=== PATIENT | male | born 1960 | race African-American/Black ===

== ENCOUNTER 2016-10-16 10:25 | Inpatient (IN) | payer OTHER ==
[2016-10-16 10:45] VITALS: BMI 25.1
[2016-10-16] MEDS ORDERED: ONDANSETRON 4 MG/2 ML VIAL IVPUSH ONE (11:27)
[2016-10-16] MEDS ORDERED: FAMOTIDINE 20 MG/50 ML IVPB 50 ML IVPB ONE ×2 (11:27→12:39)
--- NOTE | 2016-10-16 11:27 | PDOC ---
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 He reports about 4 episodes of vomiting, nonbloody, since the onset of symptoms. He localizes his intermittent abdominal pain to the epigastric region without radiation of pain. He also states he has had a couple episodes of loose stools, nonbloody. He reports several recent experiences with these symptoms since in August, but he denies any admissions for these symptoms. The patient states he was unable to tolerate his potassium today. He denies any recent travels or antibiotic use. He denies any sick contacts. He denies chest pain, shortness of breath, headache and dizziness. He denies fever, chills, and constipation. He denies dysuria, frequency, urgency and hematuria. Allergies: NKDA Surgical History: Double spinal fusion (vicodin) The patient presents with his significant other, Jeovanny hernandez [phone] <Kisha Christian - Last Filed: 10/16/16 19:04> <Libby Chamberlain - Last Filed: 10/16/16 19:20> - General Chief Complaint: Pain Stated Complaint: ABD PAIN,WEAK,DIZZY Time Seen by Provider: 10/16/16 11:06 Past History <Kisha Christian - Last Filed: 10/16/16 19:04> - Past Medical History Disorders: (ENLARGED PROSTATE) HTN: Yes Other medical history: DISC DISEASE, GITELMAN DISEASE - Psycho/Social/Smoking Cessation Hx Suicidal Ideation: No Smoking History: Never smoked Information on smoking cessation initiated: No <Libby Chamberlain - Last Filed: 10/16/16 19:20> - Past Medical History Allergies/Adverse Reactions: Allergies Allergy/AdvReac Type Severity Reaction Status Date / Time gabapentin [From Neurontin] Allergy Verified 10/16/16 10:41 Review of Systems - Review of Systems Able to Perform ROS?: Yes Comments:: 10/16/16 11:28 GENERAL/CONSTITUTIONAL: No fever or chills. No weakness. HEAD, EYES, EARS, NOSE AND THROAT: No change in vision. No ear pain or discharge. No sore throat. CARDIOVASCULAR: No chest pain or shortness of breath. RESPIRATORY: No cough, wheezing, or hemoptysis. GASTROINTESTINAL: (+) abdominal pain, nausea, vomiting, diarrhea. No constipation. GENITOURINARY: No dysuria, frequency, or change in urination. MUSCULOSKELETAL: No joint or muscle swelling or pain. No neck or back pain. SKIN: No rash NEUROLOGIC: No headache, vertigo, loss of consciousness, or change in strength/ sensation. ENDOCRINE: No increased thirst. No abnormal weight change. HEMATOLOGIC/LYMPHATIC: No anemia, easy bleeding, or history of blood clots. ALLERGIC/IMMUNOLOGIC: No hives or skin allergy. <Kisha Christian - Last Filed: 10/16/16 19:04> *Physical Exam - Vital Signs Last Vital Signs Temp Pulse Resp BP Pulse Ox 98.1 F 97 H 18 143/95 100 10/16/16 10:30 10/16/16 10:30 10/16/16 10:30 10/16/16 10:30 10/16/16 10:30 - Physical Exam Comments: 10/16/16 11:29 GENERAL: Awake, alert, and fully oriented, in no acute distress HEAD: No signs of trauma EYES: PERRLA, EOMI, sclera anicteric, conjunctiva clear ENT: (+) dry mucosa. Auricles normal inspection, hearing grossly normal, nares patent, oropharynx clear without exudates. NECK: Normal ROM, supple, no lymphadenopathy, JVD, or masses LUNGS: Breath sounds equal, clear to auscultation bilaterally. No wheezes, and no crackles HEART: Regular rate and rhythm, normal S1 and S2, no murmurs, rubs or gallops ABDOMEN: (+) mild epigastric tenderness to palpation. no rebound. no guarding. Soft, normoactive bowel sounds. No masses EXTREMITIES: Normal range of motion, no edema. No clubbing or cyanosis. No cords, erythema, or tenderness NEUROLOGICAL: Normal speech, normal gait SKIN: Warm, Dry, normal turgor, no rashes or lesions noted. <Kihsa Christian - Last Filed: 10/16/16 19:04> - Vital Signs Last Vital Signs Temp Pulse Resp BP Pulse Ox 98.1 F 97 H 18 143/95 100 10/16/16 10:30 10/16/16 10:30 10/16/16 10:30 10/16/16 10:30 10/16/16 10:30 <Libby Chamberlain - Last Filed: 10/16/16 19:20> Heart Score/ECG Review #1 ECG reviewed & interpreted by me at: 13:08 General ECG Interpretation: Sinus Rhythm, Normal Rate (occasional PVc's), Normal Intervals (occasional PVC) <Libby Chamberlain - Last Filed: 10/16/16 19:20> ED Treatment Course - LABORATORY CBC & Chemistry Diagram: 10/16/16 12:45 10/16/16 12:45 <Kisha hCristian - Last Filed: 10/16/16 19:04> - LABORATORY CBC & Chemistry Diagram: 10/16/16 12:45 10/16/16 12:45 <Libby Chamberlain - Last Filed: 10/16/16 19:20> Medical Decision Making - Medical Decision Making 10/16/16 11:21 56 yo M with h/o Gittelmans syndrome requiring daily potassium supplement take 60 meq twice daily, . here with n/v/d since yesterday. has had several recurrent episode over last month, none requiring admission. has not seen GI since 10 years ago. pt is on chronic vicodin 10 mg for h/o spinal fusion back pain, states is running low, but has not run out. no f/c no recent antiobiotcs no recent traveling. no mod factors. has thrown up 30 times since yesterday. c/ o epigastric burning pain. no mod factors. all nonbloody nonbilious. on exam, dry mucous membranes, mild epigastric ttp, otherwise normal exam differential: pancreatitis, gastritis, opiate withdrawal, hypokalemia, dehydration, renal failure, other electrolyte plan ivfluids, antacid, antemetics. 10/16/16 15:01 <Libby Chamberlain - Last Filed: 10/16/16 19:20> *DC/Admit/Observation/Transfer - Transfer to Acute Care Facility Transfer comment: 10/16/16 11:30 Documentation prepared by Kisha Christian, acting as medical coding auditor for Libby Chamberlain MD, <Kisha Christian - Last Filed: 10/16/16 19:04> - Discharge Dispostion Admit: Yes <Libby Chamberlain - Last Filed: 10/16/16 19:20> Diagnosis at time of Disposition: Gastroenteritis, Hypokalemia
[2016-10-16] MEDS ORDERED: SODIUM CHLORIDE 1,000 ML IV STA ×2 (11:29→15:00)
[2016-10-16] MEDS ORDERED: ONDANSETRON 4 MG/2 ML VIAL ONE (12:39)
[2016-10-16 12:58] LABS: BASOPHIL 0.7 % (0-2.0); EOSINOPHIL 2.3 % (0-4.5); MCH 28.8 pg (25.7-33.7); MCHC 33.7 g/dl (32.0-35.9); MEAN CELL VOLUME 85.3 fl (80-96); MEAN PLT VOLUME 7.2 fl (7.5-11.1); NEUTROPHILS 72.3 % (42.8-82.8); PLATELET COUNT 406 K/MM3 (134-434); WHITE BLOOD COUNT 9.6 K/mm3 (4.0-10.0)
[2016-10-16] MEDS ORDERED: POTASSIUM CHLORIDE TABS 20 MEQ TABLET.ER (FP) PO ONE ×2 (13:17→15:03)
[2016-10-16] MEDS ORDERED: POTASSIUM CHLORIDE 20 MEQ PREMIX IVPB 100 ML IVPB ONE (13:17)
[2016-10-16 13:35] LABS: ALBUMIN 3.6 g/dl (3.4-5.0); ANION GAP 13 (8-16); BILIRUBIN,TOTAL 0.6 mg/dL (0.2-1.0); CO2 27 mmol/L (21-32); COCKROFT - GAULT 95.25; GLUCOSE,RANDOM 114 mg/dL (74-106); SGOT/AST 17 U/L (15-37); SGPT/ALT 26 U/L (12-78); TOT PROT 7.3 g/dl (6.4-8.2)
[2016-10-16 13:39] LABS: ALK PHOS 72 U/L (45-117); TROPONIN I < 0.02 ng/ml (0.00-0.05)
[2016-10-16] MEDS ORDERED: KCL 10 MEQ IVPB 200 ML IVPB ONE (15:03)
--- NOTE | 2016-10-16 19:09 | HP ---
CHIEF COMPLAINT: "mert been vomiting" PCP: Dr Chastity Gustafson HISTORY OF PRESENT ILLNESS: This is a 56 yo M with 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 Patient states he has had 3 similar episodes this spring, self limiting over 4 days, for which he was not hospitalized. There are no sick contacts, no specific initiating factors, no alleviating or aggravating factors. He has had 4 ep of NBNB vomiting and >30 ep of nonbloody, nonmelenous diarrhea. He has not been able to tolerate PO today and has not taken his K supplements or HTN meds. His abd pain is mostly diffuse, dull, constant, nonradiating and aggravated by BM. He deneis weight loss, rectal pain, f/c, chest pain, palpitations or sob but complains of thirst, dry mouth and h/a. He denies muscle cramps but complains of chronic joint pains and chronic polyuria. He had a colonoscopy 20 yrs ago due to his chronic abd complaints, that seemed to be normal, was not told of UC or crohns. He has tried lactose free and gluten free diet with no alleviation of symptoms. He has no recreational specialist or GI. ER course was notable for: (1)labs (hypokalemia 3.1), mag added on later (2)ekg (wnl) (3)IVF, K iv 20, po 40m, zofran Recent Travel: r[place], Has a trip scheduled for Fri. PAST MEDICAL HISTORY: as above PAST SURGICAL HISTORY: as above Social History: lives with partner Smokin cigs/day x 10 yrs Alcohol: one drink/week Drugs: denies Family History: Mother gastric CA, degenerative disc disease Allergies gabapentin [From Neurontin] Allergy (Verified 10/16/16 10:41)-n/v HOME MEDICATIONS: REVIEW OF SYSTEMS CONSTITUTIONAL: Absent: fever, chills, diaphoresis, weight change HEENT: Absent: rhinorrhea, nasal congestion, throat pain CARDIOVASCULAR: Absent: chest pain, syncope, palpitations, irregular heart rate, lightheadedness , peripheral edema RESPIRATORY: Absent: cough, shortness of breath, dyspnea with exertion, orthopnea, wheezing, stridor, hemoptysis GASTROINTESTINAL: Absent: constipation, melena, hematochezia +n/v, diarrhea, abd pain GENITOURINARY: +dysuria (chronic, no history UTI, planning TURP/scraping in near future) MUSCULOSKELETAL: Absent: myalgia, joint swelling SKIN: Absent: rash, itching, pallor HEMATOLOGIC/IMMUNOLOGIC: Absent: easy bleeding, easy bruising, lymphadenopathy, frequent infections ENDOCRINE: Absent: unexplained weight gain, unexplained weight loss NEUROLOGIC: Absent: focal weakness or paresthesias, dizziness, unsteady gait, seizure, mental status changes, bladder or bowel incontinence PSYCHIATRIC: Absent: anxiety, depression, si/hi PHYSICAL EXAMINATION Vital Signs - 24 hr 10/16/16 10/16/16 10/16/16 10:30 18:09 18:10 Temperature 98.1 F Pulse Rate 97 H Pulse Rate [ 98 H Apical] Pulse Rate [ 111 H Standing] Respiratory 18 Rate Blood Pressure 143/95 Blood Pressure 146/90 [Arm] Blood Pressure 150/97 [Standing] O2 Sat by Pulse 100 Oximetry (%) GENERAL: Awake, alert, and fully oriented, in no acute distress. HEAD: Normal with no signs of trauma. EYES: Pupils equal, round and reactive to light, extraocular movements intact, sclera anicteric, conjunctiva clear. No lid lag. EARS, NOSE, THROAT: Dry mucous membranes. NECK: supple without lymphadenopathy, JVD, or masses. LUNGS: Breath sounds equal, clear to auscultation bilaterally. HEART: Regular rate and rhythm, normal S1 and S2 ABDOMEN: Soft, diffusely tender jacques in LUQ and suprapubic, some voluntary guarding in most tender areas, no reboud, not distended, normoactive bowel sounds, no masses. No hepatomegaly or splenomegaly. MUSCULOSKELETAL: No CVA tenderness. UPPER EXTREMITIES: 2+ pulses, warm, well-perfused. No cyanosis. No clubbing. No peripheral edema. LOWER EXTREMITIES: 2+ pulses, warm, well-perfused. No calf tenderness. No peripheral edema. NEUROLOGICAL: Cranial nerves II-XII grossly intact. Normal speech. PSYCHIATRIC: Cooperative. Good eye contact. Appropriate mood and affect. SKIN: Warm, dry Laboratory Results - last 24 hr 10/16/16 10/16/16 10/16/16 12:45 12:45 12:45 WBC 9.6 RBC 4.55 Hgb 13.1 Hct 38.8 MCV 85.3 MCHC 33.7 RDW 15.0 Plt Count 406 MPV 7.2 L Neutrophils % 72.3 Lymphocytes % 19.4 Monocytes % 5.3 Eosinophils % 2.3 Basophils % 0.7 Sodium 143 Potassium 3.1 L Chloride 103 Carbon Dioxide 27 Anion Gap 13 BUN 15 Creatinine 1.0 Creat Clearance w eGFR > 60 Random Glucose 114 H Lactic Acid Calcium 9.0 Total Bilirubin 0.6 AST 17 ALT 26 Alkaline Phosphatase 72 Creatine Kinase 279 Creatine Kinase Index 0.6 CK-MB (CK-2) 1.550 CK-MB (CK-2) Rel Index Troponin I < 0.02 Total Protein 7.3 Albumin 3.6 Lipase 129 10/16/16 10/16/16 12:45 12:45 WBC RBC Hgb Hct MCV MCHC RDW Plt Count MPV Neutrophils % Lymphocytes % Monocytes % Eosinophils % Basophils % Sodium Potassium Chloride Carbon Dioxide Anion Gap BUN Creatinine Creat Clearance w eGFR Random Glucose Lactic Acid 1.0 Calcium Total Bilirubin AST ALT Alkaline Phosphatase Creatine Kinase Creatine Kinase Index CK-MB (CK-2) CK-MB (CK-2) Rel Index Cancelled Troponin I Total Protein Albumin Lipase ASSESSMENT/PLAN: This is a 56 yo M with 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 Possible IBS flare up -consider electrolyte abnormalities as cause, Ca was wnl -r/o UC/crohns; CT abd/pelvis negative -volume depleted; IVF NS @ 125 (s/p 2L in ED) -zofran PRN nausea -full liquid diet, advance as tolerated -recommend outpatient GI f/u with colonoscopy/endoscopy Hypokalemia in setting of Gitelmans syndrome -k 3.1; will replete and monitor -Check Mag -due to n/v, inability to tolerate PO K -s/p 20 K IV and 40 PO in ED -per literature, patient should be on indomathacin 75, aldactone 300 and possibly ACEi to reduce tubular K wasting and decrease need for K supplements ( takes 160 meq daily) -recommend outpatient renal r/u HTN -continue metoprolol 100 d and amlodipine 20 d but should be on above meds instead BPH -continue flomax 0.4 d degenerative disc disease -vicodin 10 tid prn, lyrica 100 d, psych d/o -mirtazapine hs, adderrall 20 d, cymbalta 16 d FEN NS@ 125 monitor mag/phos/K full liquid diet Na restricted SCD Dispo: obs in med [facility]. patient has a trip on Fri morning. Problem List - Problem (1) Hypokalemia Code(s): E87.6 - HYPOKALEMIA (2) Diarrhea Code(s): R19.7 - DIARRHEA, UNSPECIFIED (3) Gitelman syndrome Code(s): E83.42 - HYPOMAGNESEMIA E87.6 - HYPOKALEMIA (4) HTN (hypertension) Code(s): I10 - ESSENTIAL (PRIMARY) HYPERTENSION Visit type - Emergency Visit Emergency Visit: Yes ED Registration Date: 10/16/16 Care time: The patient presented to the Emergency Department on the above date and was hospitalized for further evaluation of their emergent condition. - New Patient This patient is new to me today: Yes Date on this admission: 10/17/16 - Critical Care Critical Care patient: No
[2016-10-16] MEDS ORDERED: ONDANSETRON 4 MG/2 ML VIAL IVPUSH PRN (20:31)
[2016-10-16] MEDS ORDERED: METOPROLOL TARTRATE 5 MG/5 ML VIAL ONE (20:38)
[2016-10-16] MEDS ORDERED: METOPROLOL TARTRATE 5 MG/5 ML VIAL IVPUSH ONE (20:39)
[2016-10-16] MEDS ORDERED: SODIUM CHLORIDE 1,000 ML IV SCH (20:45)
--- NOTE | 2016-10-16 20:53 | PN ---
<Daphney Morgan - Last Filed: 10/16/16 20:53> Teaching Attending Note Name of Resident: Jud Huerta <Mo La - Last Filed: 10/17/16 05:02> Teaching Attending Note ATTENDING PHYSICIAN STATEMENT I saw and evaluated the patient. I reviewed the resident's note and discussed the case with the resident. I agree with the resident's findings and plan as documented. SUBJECTIVE: The patient is a 56 year old male, who presented to the emergency department with abdominal cramping, nausea, vomiting, and diarrhea since 12PM yesterday. He reported about 4 episodes of vomiting, nonbloody, since the onset of symptoms. He described his pain as intermittent starting in the LLQ abdomen radiating to the epigastric region. He also states he has had a couple episodes of nonbloody, loose stools with several recent episodes of similar symptoms since . The patient stated takes potassium supplements but he was unable to tolerate his potassium today. He endorsed associated headache, chills, dry mouth, polyuria, and dysuria. He denied any recent travels or antibiotic use. He denied any sick contacts. He denied chest pain, shortness of breath, headache and dizziness. He denied fever and constipation. He denies dysuria, frequency, urgency and hematuria. 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 SOCIAL HISTORY: 3 cigarettes per day. Denied EtOH use and recreational drug use. MEDICATIONS: Reviewed ALLERGIES: Gabapentin OBJECTIVE: Vital Signs: 3 Temp Pulse Resp BP Pulse Ox 98.1 F 86 18 158/90 100 10/16/16 20:08 10/16/16 20:57 10/16/16 10:30 10/16/16 20:57 10/16/16 10:30 Physical Exam: GENERAL: Awake, alert, and fully oriented, in no acute distress HEENT: (+) Atraumatic. PERRLA, EOMI. Dry mucosa. No JVD LUNGS: No distress, speaks full sentences, clear to auscultation bilaterally HEART: Regular rate and rhythm, normal S1 and S2, no murmurs, rubs or gallops, peripheral pulses normal and equal bilaterally. ABDOMEN: (+)Soft, normoactive bowel sounds. Diffuse tenderness on palpation worse in suprapubic epigastric region and LUQ region. Guarding and rebound appreciated. EXTREMITIES: Normal inspection, Normal range of motion, no edema. No clubbing or cyanosis. NEUROLOGICAL: Cranial nerves II through XII grossly intact. Normal speech, normal gait, no focal sensorimotor deficits SKIN: Warm, Dry, normal turgor, no rashes or lesions noted. Labs: 3 10/16/16 10/16/16 10/16/16 12:45 12:45 12:45 WBC 9.6 RBC 4.55 Hgb 13.1 Hct 38.8 MCV 85.3 MCHC 33.7 RDW 15.0 Plt Count 406 MPV 7.2 L Neutrophils % 72.3 Lymphocytes % 19.4 Monocytes % 5.3 Eosinophils % 2.3 Basophils % 0.7 Sodium 143 Potassium 3.1 L Chloride 103 Carbon Dioxide 27 Anion Gap 13 BUN 15 Creatinine 1.0 Creat Clearance w eGFR > 60 Random Glucose 114 H Lactic Acid Calcium 9.0 Total Bilirubin 0.6 AST 17 ALT 26 Alkaline Phosphatase 72 Creatine Kinase 279 Creatine Kinase Index 0.6 CK-MB (CK-2) 1.550 CK-MB (CK-2) Rel Index Troponin I < 0.02 Total Protein 7.3 Albumin 3.6 Lipase 129 Urine Color Urine Appearance Urine pH Urine Protein Urine Glucose (UA) Urine Ketones Urine Blood Urine Nitrite Urine Bilirubin Urine Urobilinogen Ur Leukocyte Esterase 3 10/16/16 10/16/16 10/16/16 12:45 12:45 21:10 WBC RBC Hgb Hct MCV MCHC RDW Plt Count MPV Neutrophils % Lymphocytes % Monocytes % Eosinophils % Basophils % Sodium Potassium Chloride Carbon Dioxide Anion Gap BUN Creatinine Creat Clearance w eGFR Random Glucose Lactic Acid 1.0 Calcium Total Bilirubin AST ALT Alkaline Phosphatase Creatine Kinase Creatine Kinase Index CK-MB (CK-2) CK-MB (CK-2) Rel Index Cancelled Troponin I Total Protein Albumin Lipase Urine Color Colorless Urine Appearance Clear Urine pH 7.0 Urine Protein Negative Urine Glucose (UA) Negative Urine Ketones Negative Urine Blood Negative Urine Nitrite Negative Urine Bilirubin Negative Urine Urobilinogen Negative Ur Leukocyte Esterase Negative Imaging: EXAM: CT/ABDOMEN PELVIS CT WITH CONTRAST HISTORY PROVIDED: Right upper quadrant pain. Sequential axial images were obtained from the domes of the diaphragms through the symphysis pubis following the administration of both oral and intravenous contrast material. The lung bases are clear. The liver is normal in size and texture. There is an enhancing mass within the posterior right lobe consistent with a hemangioma. There is also a tiny cyst within the left lobe. The spleen, pancreas, adrenal glands and kidneys demonstrate no significant abnormalities. Bilateral renal cysts are present. The gallbladder is clear. There is no evidence of intra- abdominal or retroperitoneal lymphadenopathy or fluid collections. There is no evidence of pneumoperitoneum, bowel obstruction or intra-abdominal abscess. There is no CT evidence of acute appendicitis or diverticulitis. Examination of the pelvis demonstrates no evidence of pelvic masses, fluid collections or lymphadenopathy. The prostate gland is enlarged measuring 6.3 x 5.6 x 5.4 cm. There is thickening of the jones of the urinary bladder with a right posterior diverticulum present. There is no evidence of acute bony abnormalities. The patient is S/P laminectomy and posterior fusion at L3-L5. IMPRESSION: 1. Prostatic enlargement with thickened urinary bladder containing a right posterior diverticulum. 2. No acute pathology within the abdomen or pelvis. Please see above discussion. Reported By: Eber Ferrara MD 10/16/16 8600 ASSESSMENT AND PLAN : 1. Abd pain-r/o cholecystitis versus colitis - CT of abdomen and pelvis with contrast obtained - IVF Normal Saline at 125 cc/hr - Zofran PRN for nausea - Outpatient follow up with GI for colonoscopy/endoscopy 2. Hypokalemia secondary to Gitelman's syndrome - Unable to tolerate potassium PO. In ED, received 20 mg potassium IV and 40 mg PO. - Check magnesium - Check and replete potassium - Aldactone 300 mg - Indomathacin 75 mg - Potassium supplements 160 meq daily - Consider renal follow up outpatient 3. HTN - Continue Metoprolol 100 mg daily - Continue Amlodipine 20 mg daily 4. Degenerative disc disease status post spinal fusion - Lyrica 100 mg daily - Vicodin 10 mg TID PRN. 5. BPH - Continue Flomax 0.4 d 6. Psychiatric disorders - Mirtazapine HS. - Adderrall 20 mg daily - Cymbalta 16 mg daily 7. DVT PPX - SCD Admit to med surg. Documentation prepared by Mo La, acting as medical terminologist for Dr. Daphney Morgan MD.
[2016-10-16 21:24] LABS: URINE APPEARANCE CLEAR; URINE BILIRUBIN NEGATIVE (NEGATIVE); URINE BLOOD NEGATIVE (NEGATIVE); URINE COLOR COLORLESS; URINE GLUCOSE (UA) NEGATIVE (NEGATIVE); URINE KETONE NEGATIVE (NEGATIVE); URINE LEUK ESTERASE NEGATIVE (NEGATIVE); URINE NITRITE NEGATIVE (NEGATIVE); URINE PROTEIN NEGATIVE (NEGATIVE); URINE UROBILINOGEN NEGATIVE E.U./dl (0.2-1.0)
[2016-10-16] MEDS ORDERED: oxyCODONE HCL 5 MG TABLET PO PRN (21:26)
[2016-10-16] MEDS: MIRTAZAPINE 15 MG TABLET (FP) PO SCH (22:27)
[2016-10-16] MEDS: amLODIPine BESYLATE 10 MG TABLET (FP) PO SCH (22:27)
[2016-10-16 23:28] LABS: MAGNESIUM 2.1 mg/dL (1.8-2.4); PHOSPHOROUS 2.5 mg/dL (2.5-4.9)
[2016-10-17 08:32] LABS: MCH 28.3 pg (25.7-33.7); MCHC 33.1 g/dl (32.0-35.9); MEAN CELL VOLUME 85.5 fl (80-96); MEAN PLT VOLUME 7.4 fl (7.5-11.1); PLATELET COUNT 392 K/MM3 (134-434); RDW 14.7 % (11.9-15.9); WHITE BLOOD COUNT 5.7 K/mm3 (4.0-10.0)
[2016-10-17 08:53] LABS: CALCIUM 8.4 mg/dL (8.5-10.1); COCKROFT - GAULT 136.07; CREATININE 0.7 mg/dL (0.7-1.3); MAGNESIUM 1.8 mg/dL (1.8-2.4); PHOSPHOROUS 2.4 mg/dL (2.5-4.9)
--- NOTE | 2016-10-17 08:55 | PN ---
Teaching Attending Note Name of Resident: Lubna Cornelius ATTENDING PHYSICIAN STATEMENT I saw and evaluated the patient. I reviewed the resident's note and discussed the case with the resident. I agree with the resident's findings and plan as documented. SUBJECTIVE: Patient is c/o having midepigastric pain. Presented with nausea and vomiting. Having continues diarrhea. No fever or chills, no shortness of breath. Also c/o having LE weakness. OBJECTIVE: Vital Signs Temperature 98.2 F 10/17/16 06:00 Pulse Rate 87 10/17/16 06:00 Respiratory Rate 20 10/17/16 06:00 Blood Pressure 144/72 10/17/16 06:00 O2 Sat by Pulse Oximetry (%) 98 10/17/16 04:45 CBCD WBC 5.7 K/mm3 (4.0-10.0) D 10/17/16 08:00 RBC 4.36 M/mm3 (4.00-5.60) 10/17/16 08:00 Hgb 12.3 GM/dL (11.7-16.9) 10/17/16 08:00 Hct 37.2 % (35.4-49) 10/17/16 08:00 MCV 85.5 fl (80-96) 10/17/16 08:00 MCHC 33.1 g/dl (32.0-35.9) 10/17/16 08:00 RDW 14.7 % (11.9-15.9) 10/17/16 08:00 Plt Count 392 K/MM3 (134-434) 10/17/16 08:00 MPV 7.4 fl (7.5-11.1) L 10/17/16 08:00 CMP Sodium 146 mmol/L (136-145) H 10/17/16 08:00 Potassium 2.5 mmol/L (3.5-5.1) L* 10/17/16 08:00 Chloride 106 mmol/L (98-107) 10/17/16 08:00 Carbon Dioxide 27 mmol/L (21-32) 10/17/16 08:00 Anion Gap 13 (8-16) 10/17/16 08:00 BUN 6 mg/dL (7-18) L D 10/17/16 08:00 Creatinine 0.7 mg/dL (0.7-1.3) D 10/17/16 08:00 Creat Clearance w eGFR > 60 (>60) 10/16/16 12:45 Random Glucose 91 mg/dL (74-106) D 10/17/16 08:00 Calcium 8.4 mg/dL (8.5-10.1) L 10/17/16 08:00 Total Bilirubin 0.6 mg/dL (0.2-1.0) 10/16/16 12:45 AST 17 U/L (15-37) 10/16/16 12:45 ALT 26 U/L (12-78) 10/16/16 12:45 Alkaline Phosphatase 72 U/L (45-117) 10/16/16 12:45 Total Protein 7.3 g/dl (6.4-8.2) 10/16/16 12:45 Albumin 3.6 g/dl (3.4-5.0) 10/16/16 12:45 CARDIAC ENZYMES Creatine Kinase 279 IU/L (39-308) 10/16/16 12:45 Troponin I < 0.02 ng/ml (0.00-0.05) 10/16/16 12:45 Home Medications Medication Instructions Recorded Amlodipine Besylate [Norvasc -] 10 mg PO DAILY 10/16/16 Dextroamphetamine/Amphetamine 10 mg PO DAILY 10/16/16 [Adderall 10 mg Tablet] Duloxetine HCl [Cymbalta -] 60 mg PO DAILY 10/16/16 Hydrocodone/Acetaminophen [Vicodin 1 each PO Q4H PRN 10/16/16 Hp 10-300 mg Tablet] Metoprolol Tartrate [Lopressor] 100 mg PO DAILY 10/16/16 Mirtazapine [Remeron -] 0.25 tab PO HS 10/16/16 Omeprazole 20 mg PO DAILY 10/16/16 Potassium Chloride [K-Dur -] 10 meq PO DAILY 10/16/16 Pregabalin [Lyrica -] 100 mg PO DAILY 10/16/16 Tamsulosin HCl [Flomax] 0.4 mg PO DAILY 10/16/16 Current Medications Generic Name Dose Route Start Last Admin Trade Name Freq PRN Reason Stop Dose Admin Amlodipine Besylate 10 mg 10/16/16 21:30 10/17/16 11:26 Norvasc - PO 10 mg DAILY RON Administration Duloxetine HCl 60 mg 10/17/16 10:00 10/17/16 11:27 Cymbalta - PO 60 mg DAILY RON Administration Potassium Chloride 40 meq/ 1,020 mls @ 100 mls/hr 10/17/16 15:46 10/17/16 16:31 Sodium Chloride IVPB 100 mls/hr Q10H RON Administration Lactobacillus Acidophilus 1 tab 10/17/16 14:00 10/17/16 14:52 Bacid - PO 1 tab DAILY RON Administration Metoprolol Tartrate 100 mg 10/17/16 10:00 10/17/16 11:26 Lopressor - PO 100 mg DAILY RON Administration Mirtazapine 7.5 mg 10/16/16 22:00 10/16/16 22:27 Remeron - PO 7.5 mg HS RON Administration Ondansetron HCl 4 mg 10/16/16 20:31 10/16/16 20:57 Zofran Injection IVPUSH 4 mg Q6H PRN Administration NAUSEA AND/OR VOMITING Oxycodone HCl 10 mg 10/16/16 21:26 Roxicodone - PO Q6H PRN PAIN Pantoprazole Sodium 20 mg 10/17/16 10:00 10/17/16 11:27 Protonix - PO 20 mg DAILY RON Administration Pregabalin 100 mg 10/17/16 10:00 10/17/16 11:27 Lyrica - PO 100 mg DAILY RON Administration Tamsulosin HCl 0.4 mg 10/17/16 10:00 10/17/16 11:26 Flomax - PO 0.4 mg DAILY RON Administration ASSESSMENT AND PLAN: This is a 56 yo M with 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 #Acute Diarrhea on and off, will do stool analysis . cdiff, ova and parasite, stool culture. recommend outpatient GI f/u with colonoscopy/endoscopy will add cholestyramine bid for now. IVF , po Bacid 2x daily . Stool culture/ ova and parasite/cdiff ordered. # Acute severe Hypokalemia in setting of Gitelmans syndrome potassium is 3.1--> 2.5 today ,check Mag level in am. Patient is on K supplements (takes 160 meq daily) . will get on the case. Will give him IVF d51/2NS with 40meq KCL at 125c/hr #HTN continue metoprolol 100 d and amlodipine 20mg/d , will discuss with nephrology QUYEN-I use and amiloride use #BPH continue flomax 0.4mg day # degenerative disc disease on oxycodone 10 tid prn, lyrica 100 d, #psych Hx on mirtazapine , adderral , cymbalta continue DVT Px: Teds stockings since patient is constantly going to the bathroom can't use SCDs(high risk for fall)
[2016-10-17] MEDS: METOPROLOL TARTRATE 50 MG TABLET (FP) PO SCH (11:26)
[2016-10-17] MEDS: TAMSULOSIN HCL 0.4 MG CAP.ER.24H (FP) PO SCH (11:26)
[2016-10-17] MEDS: amLODIPine BESYLATE 10 MG TABLET (FP) PO SCH (11:26)
[2016-10-17] MEDS: PANTOPRAZOLE 20 MG TABLET (FP) PO SCH (11:27)
[2016-10-17] MEDS: PREGABALIN 100 MG CAPSULE PO SCH (11:27)
[2016-10-17] MEDS: DULoxetine HCL 30 MG CAPSULE.DR (FP) PO SCH (11:27)
[2016-10-17] MEDS ORDERED: SODIUM CHLORIDE 1,000 ML IV SCH (11:41)
[2016-10-17] MEDS ORDERED: POTASSIUM CHLORIDE TABS 20 MEQ TABLET.ER (FP) PO ONE ×3 (12:00→23:16)
--- NOTE | 2016-10-17 13:10 | EKG ---
Test Reason : Blood Pressure : / mmHG Vent. Rate : 086 BPM Atrial Rate : 046 BPM P-R Int : 214 ms QRS Dur : 092 ms QT Int : 426 ms P-R-T Axes : 065 015 058 degrees QTc Int : 509 ms SINUS RHYTHM PREMATURE VENTRICULAR COMPLEXES NONSPECIFIC T WAVE ABNORMALITY PROLONGED QT ABNORMAL ECG NO PREVIOUS ECGS AVAILABLE Confirmed by CLARE ROJO MD ([id number]) on 10/17/2016 1:10:39 PM Referred By: Confirmed By:CLARE ROJO MD
[2016-10-17] MEDS: KCL 10 MEQ IVPB 100 ML IVPB SCH ×2 (13:17→13:46)
[2016-10-17] MEDS ORDERED: SODIUM CHLORIDE KCL IV SCH ×2 (13:34→13:42)
--- NOTE | 2016-10-17 14:05 | PN ---
Physical Exam: SUBJECTIVE: Patient seen and examined at bed side this morning. Complained of several episodes of watery diarrhoea. Feels very tired. Has abdominal cramps on /off, denies nausea or vomiting. Bladder habit normal. Sleep/Appetite normal. OBJECTIVE: GENERAL: The patient is awake, alert, and fully oriented, in no acute distress. HEAD: Normal with no signs of trauma. EYES: EOM intact, no pallor or icterus. ENT: Ears normal, moist mucous membranes. NECK: Supple. LUNGS: Breath sounds equal, clear to auscultation bilaterally, no wheezes, no crackles, no accessory muscle use. HEART: Regular rate and rhythm, S1, S2 without murmur, rub or gallop. ABDOMEN: Soft, tenderness on the left upper quadrant, nondistended, normoactive bowel sounds, no guarding, no rebound, no hepatosplenomegaly, no masses. EXTREMITIES: 2+ pulses, warm, well-perfused, no edema. NEUROLOGICAL: Cranial nerves II through XII grossly intact. Normal speech, gait not observed. PSYCH: Normal mood, normal affect. SKIN: Warm, dry, normal turgor, no rashes or lesions noted Active Medications Generic Name Dose Route Start Last Admin Trade Name Freq PRN Reason Stop Dose Admin Amlodipine Besylate 10 mg 10/16/16 21:30 10/17/16 11:26 Norvasc - PO 10 mg DAILY RON Administration Duloxetine HCl 60 mg 10/17/16 10:00 10/17/16 11:27 Cymbalta - PO 60 mg DAILY RON Administration Sodium Chloride/ Potassium 1,040 mls @ 150 mls/hr 10/17/16 13:46 Chloride IV ASDIR RON Lactobacillus Acidophilus 1 tab 10/17/16 14:00 Bacid - PO DAILY RON Metoprolol Tartrate 100 mg 10/17/16 10:00 10/17/16 11:26 Lopressor - PO 100 mg DAILY RON Administration Mirtazapine 7.5 mg 10/16/16 22:00 10/16/16 22:27 Remeron - PO 7.5 mg HS RON Administration Ondansetron HCl 4 mg 10/16/16 20:31 10/16/16 20:57 Zofran Injection IVPUSH 4 mg Q6H PRN Administration NAUSEA AND/OR VOMITING Oxycodone HCl 10 mg 10/16/16 21:26 Roxicodone - PO Q6H PRN PAIN Pantoprazole Sodium 20 mg 10/17/16 10:00 10/17/16 11:27 Protonix - PO 20 mg DAILY RON Administration Pregabalin 100 mg 10/17/16 10:00 10/17/16 11:27 Lyrica - PO 100 mg DAILY RON Administration Tamsulosin HCl 0.4 mg 10/17/16 10:00 10/17/16 11:26 Flomax - PO 0.4 mg DAILY RON Administration CT abdomen/Pelvis 10/16/2016: The lung bases are clear. The liver is normal in size and texture. There is an enhancing mass within the posterior right lobe consistent with a hemangioma. There is also a tiny cyst within the left lobe. The spleen, pancreas, adrenal glands and kidneys demonstrate no significant abnormalities. Bilateral renal cysts are present. The gallbladder is clear. There is no evidence of intra- abdominal or retroperitoneal lymphadenopathy or fluid collections. There is no evidence of pneumoperitoneum, bowel obstruction or intra-abdominal abscess. There is no CT evidence of acute appendicitis or diverticulitis. Examination of the pelvis demonstrates no evidence of pelvic masses, fluid collections or lymphadenopathy. The prostate gland is enlarged measuring 6.3 x 5.6 x 5.4 cm. There is thickening of the jones of the urinary bladder with a right posterior diverticulum present. There is no evidence of acute bony abnormalities. The patient is S/P laminectomy and posterior fusion at L3-L5. IMPRESSION: 1. Prostatic enlargement with thickened urinary bladder containing a right posterior diverticulum. 2. No acute pathology within the abdomen or pelvis. 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 # Nausea, vomiting, diarrhoea-R/O Irritable bowel syndrome flare up Admitted in Med-Surg CT abdomen/Pelvis no acute pathology He had a colonoscopy 10 years ago and it was normal as per the patient, would consider colonoscopy as outpatient to r/o Ulcerative colitis or crohns disease. Since patient has a h/o nausea/vomiting/diarrhoea for almost 20 years, has h/ o depression and is on medication, most likely it is Irritable bowel syndrome. IVF NS @ 150mls + 40 mEq/L IV Zofran PRN GI consult requested Stool sent for C-diff; stool culture, ova and parasite. Bacid 1 tab PO daily # Hypokalemia in setting of Gitelmans syndrome (diagnosed in 2006) K 3.1---> 2.5; Ordered IV KCL x 3 bags, after receiving the first bag for 5 minutes patient started screaming of pain, couldn't tolerate it. Hence discontinued it and added Kcl 40 mEq/L in IV NS @ 100mls/hr Magnesium 1.8 Patient received PO K-dur 40 this am and stat at 4pm, repeat K and Mg at 7pm and if Potassium is still low, give another K-Dur 40meq PO. Renal consult requested # Hypertension: stable. Continue metoprolol 100mg PO daily and amlodipine 20mg PO daily # BPH Doesn't have urinary symptoms at this time As per CT scan report, Prostate gland is enlarged measuring 6.3 x 5.6 x 5.4 cm. Continue Flomax 0.4 mg PO Daily. # Degenerative disc disease Oxycodone 10mg PO Q6H PRN and Pregabalin 100mg PO Daily. # Depression Continue Mirtazapine 7.5 mg PO HS, Duloxetine 6o mg PO Daily. Patient is on home medication Dextroamphetamine/Amphetamine (don't have in our pharmacy) # FEN IV NS with 40 mEq/L @ 100 mls/hr Electrolytes to be repeated in am Full liquid diet Na restricted # Prophylaxis For DVT: On SCD's For GI: On pantoprazole 20mg PO Daily # Dispo: Admitted in Med-Surg. Duration of stay unknown. Patient has a trip tomorrow and wanted to go home today. Patient explained the risks of leaving with critically low potassium value. Patient agreed to stay. Illness, Investigation and Plan of care explained to the patient. He verbalized understanding. Case seen and discussed with Dr. Stone. Visit type - Emergency Visit Emergency Visit: Yes ED Registration Date: 10/17/16 Care time: The patient presented to the Emergency Department on the above date and was hospitalized for further evaluation of their emergent condition. - New Patient This patient is new to me today: No - Critical Care Critical Care patient: No - Discharge Referral Referred to [facility] Med [facility] No
[2016-10-17] MEDS: LACTOBACILLUS ACIDOPHILUS 1 EACH TAB (FP) PO SCH (14:52)
[2016-10-17] MEDS ORDERED: POTASSIUM CHLORIDE 40 MEQ in SODIUM CHLORIDE 1,000 ML IVPB SCH ×2 (15:00→15:46)
[2016-10-17] MEDS: D5-1/2NS+40 MEQ KCL - 1,000 ML IV SCH (19:06)
--- NOTE | 2016-10-17 19:42 | CONSULT ---
Consult Consult Specialty:: Nephrology Reason for Consultation:: gitleman syndrome and hypokalemia - History of Present Illness Chief Complaint: diarrhea History of Present Illness: Pt is a 56 year old male with pmhx of HTN and gitelman syndrome who presents to the ER with nausea and diarrhea. It began a day ago. He also had several episodes of vomiting. I was called to evaluate him for hypokalemia. He takes a total of 120 meq of KCL at home. He does not follow with a local supervisor [employer] as he recently moved from [place]. He denies chest pain or palpitations. He denies dysuria or hematuria. - History Source History Provided By: Patient, Medical Record - Past Medical History Cardio/Vascular: Yes: HTN Gastrointestinal: Yes: GERD Renal/: Yes: Other (Gitelman Syndrome) - Alcohol/Substance Use Hx Alcohol Use: Yes (SOCIALLY) - Smoking History Smoking history: Current some day smoker Have you smoked in the past 12 months: Yes Aproximately how many cigarettes per day: 2 Home Medications - Allergies Allergies/Adverse Reactions: Allergies Allergy/AdvReac Type Severity Reaction Status Date / Time gabapentin [From Neurontin] Allergy Verified 10/16/16 10:41 - Home Medications Home Medications: Ambulatory Orders Amlodipine Besylate [Norvasc -] 10 mg PO DAILY 10/16/16 Dextroamphetamine/Amphetamine [Adderall 10 mg Tablet] 10 mg PO DAILY 10/16/16 Duloxetine HCl [Cymbalta -] 60 mg PO DAILY 10/16/16 Hydrocodone/Acetaminophen [Vicodin Hp 10-300 mg Tablet] 1 each PO Q4H PRN Metoprolol Tartrate [Lopressor] 100 mg PO DAILY 10/16/16 Mirtazapine [Remeron -] 0.25 tab PO HS 10/16/16 Omeprazole 20 mg PO DAILY 10/16/16 Potassium Chloride [K-Dur -] 10 meq PO DAILY 10/16/16 Pregabalin [Lyrica -] 100 mg PO DAILY 10/16/16 Tamsulosin HCl [Flomax] 0.4 mg PO DAILY 10/16/16 Family Disease History - Family Disease History Family History: Denies Review of Systems - Review of Systems Constitutional: reports: Malaise. denies: Chills, Fever Eyes: reports: No Symptoms HENT: reports: No Symptoms Neck: reports: No Symptoms Cardiovascular: reports: No Symptoms Respiratory: reports: No Symptoms Gastrointestinal: reports: Abdominal Pain, Diarrhea, Vomiting Genitourinary: reports: No Symptoms Musculoskeletal: reports: No Symptoms Integumentary: reports: No Symptoms Neurological: reports: No Symptoms Endocrine: reports: No Symptoms Hematology/Lymphatic: reports: No Symptoms Psychiatric: reports: No Symptoms Physical Exam Vital Signs: Vital Signs Temperature 98.5 F 10/17/16 18:00 Pulse Rate 77 10/17/16 18:00 Respiratory Rate 20 10/17/16 18:00 Blood Pressure 152/74 10/17/16 18:00 O2 Sat by Pulse Oximetry (%) 98 10/17/16 12:00 Constitutional: Yes: Calm Eyes: Yes: Conjunctiva Clear HENT: Yes: Atraumatic Neck: Yes: Supple Cardiovascular: Yes: S1, S2 Respiratory: Yes: CTA Bilaterally Gastrointestinal: Yes: Normal Bowel Sounds, Soft Musculoskeletal: Yes: WNL Extremities: Yes: WNL Edema: No Neurological: Yes: Oriented Psychiatric: Yes: Oriented Labs: Laboratory Tests 10/16/16 10/16/16 10/16/16 12:45 12:45 21:10 WBC 9.6 Hgb 13.1 Plt Count 406 Sodium 143 Potassium 3.1 L Chloride 103 Carbon Dioxide 27 Anion Gap 13 BUN 15 Creatinine 1.0 Creat Clearance w eGFR > 60 Random Glucose 114 H Calcium Phosphorus Magnesium Creatine Kinase 279 Urine Color Colorless Urine Appearance Clear Urine pH 7.0 Ur Specific [place] 1.015 Urine Protein Negative Urine Glucose (UA) Negative Urine Ketones Negative Urine Blood Negative Urine Nitrite Negative Urine Bilirubin Negative Urine Urobilinogen Negative Ur Leukocyte Esterase Negative 10/17/16 10/17/16 08:00 08:00 WBC 5.7 D Hgb 12.3 Plt Count 392 Sodium 146 H Potassium 2.5 L* Chloride 106 Carbon Dioxide 27 Anion Gap 13 BUN 6 L D Creatinine 0.7 D Creat Clearance w eGFR Random Glucose 91 D Calcium 8.4 L Phosphorus 2.4 L Magnesium 1.8 Creatine Kinase Urine Color Urine Appearance Urine pH Ur Specific [place] Urine Protein Urine Glucose (UA) Urine Ketones Urine Blood Urine Nitrite Urine Bilirubin Urine Urobilinogen Ur Leukocyte Esterase Imaging - Results Chest X-ray: Report Reviewed Problem List - Problems (1) Diarrhea Code(s): R19.7 - DIARRHEA, UNSPECIFIED (2) Gastroenteritis Code(s): K52.9 - NONINFECTIVE GASTROENTERITIS AND COLITIS, UNSPECIFIED (3) Gitelman syndrome Code(s): E83.42 - HYPOMAGNESEMIA E87.6 - HYPOKALEMIA (4) HTN (hypertension) Code(s): I10 - ESSENTIAL (PRIMARY) HYPERTENSION (5) Hypokalemia Code(s): E87.6 - HYPOKALEMIA Assessment/Plan Current Medications Generic Name Dose Route Start Last Admin Trade Name Freq PRN Reason Stop Dose Admin Amlodipine Besylate 10 mg 10/16/16 21:30 10/17/16 11:26 Norvasc - PO 10 mg DAILY RON Administration Cholestyramine Resin 4 gm 10/17/16 22:00 Questran Packet - PO BID RON Duloxetine HCl 60 mg 10/17/16 10:00 10/17/16 11:27 Cymbalta - PO 60 mg DAILY RON Administration Dextrose/Sodium Chloride 1,000 mls @ 125 mls/hr 10/17/16 18:15 10/17/16 19:06 D5-1/2ns+40 Meq Kcl - IV 125 mls/hr ASDIR RON Administration Lactobacillus Acidophilus 1 tab 10/17/16 14:00 10/17/16 14:52 Bacid - PO 1 tab DAILY RON Administration Metoprolol Tartrate 100 mg 10/17/16 10:00 10/17/16 11:26 Lopressor - PO 100 mg DAILY RON Administration Mirtazapine 7.5 mg 10/16/16 22:00 10/16/16 22:27 Remeron - PO 7.5 mg HS RON Administration Ondansetron HCl 4 mg 10/16/16 20:31 10/16/16 20:57 Zofran Injection IVPUSH 4 mg Q6H PRN Administration NAUSEA AND/OR VOMITING Oxycodone HCl 10 mg 10/16/16 21:26 Roxicodone - PO Q6H PRN PAIN Pantoprazole Sodium 20 mg 10/17/16 10:00 10/17/16 11:27 Protonix - PO 20 mg DAILY RON Administration Pregabalin 100 mg 10/17/16 10:00 10/17/16 11:27 Lyrica - PO 100 mg DAILY RON Administration Tamsulosin HCl 0.4 mg 10/17/16 10:00 10/17/16 11:26 Flomax - PO 0.4 mg DAILY RON Administration Impression 1. Gitelman Syndrome 2. hypokalemia 3. HTN 4. diarrhea/gastroenteritis 5. GERD Plan - restart oral potassium supplements, can use liquid if he does not tolerated tabs - add potassium to IV fluids - monitor potassium and mag levels - continue with full liquid diet - follow up repeat labs - monitor potassium closely - will follow Dr Navarro
[2016-10-17] MEDS ORDERED: POTASSIUM PHOSPHATE 15 MM in SODIUM CHLORIDE 250 ML IVPB ONE (19:48)
[2016-10-17 20:02] LABS: CALCIUM 8.9 mg/dL (8.5-10.1); COCKROFT - GAULT 119.06; CREATININE 0.8 mg/dL (0.7-1.3)
--- NOTE | 2016-10-17 20:19 | PN ---
Progress Note (short form) - Note Progress Note: Nephrology addendum Laboratory Tests 10/17/16 18:15 Potassium 3.3 L D repeat potassium is improving. will restart PO kcl at 40 meq TID Problem List - Problems (1) Diarrhea Code(s): R19.7 - DIARRHEA, UNSPECIFIED (2) Gastroenteritis Code(s): K52.9 - NONINFECTIVE GASTROENTERITIS AND COLITIS, UNSPECIFIED (3) Gitelman syndrome Code(s): E83.42 - HYPOMAGNESEMIA E87.6 - HYPOKALEMIA (4) HTN (hypertension) Code(s): I10 - ESSENTIAL (PRIMARY) HYPERTENSION (5) Hypokalemia Code(s): E87.6 - HYPOKALEMIA
[2016-10-17] MEDS: NAPH,MB-DB/K PH,MBDB POWDER PACKET PO SCH ×2 (20:39→21:38)
--- NOTE | 2016-10-17 20:48 | CON.GI ---
Consult Consult Specialty:: GI - History of Present Illness Chief Complaint: diarrhea History of Present Illness: 56 M with h/o Concha fernandes admitted with 24 hours of diarrhea and nausea. He states this is the third time this month that this has happened. He also states this has been happening intermittently since age 9. He states he had 30 BM yesterday and fewer today. Nurse states 4 x. He appears comfortable. His significant other is present. He denies black or bloody stools. He also has mild -mod LLQ pain. - History Source History Provided By: Patient, Significant Other Limitations to Obtaining History: No Limitations - Past Medical History Cardio/Vascular: Yes: HTN Gastrointestinal: Yes: GERD Renal/: Yes: Other (Gitelman Syndrome) - Alcohol/Substance Use Hx Alcohol Use: Yes (SOCIALLY) - Smoking History Smoking history: Current some day smoker Have you smoked in the past 12 months: Yes Aproximately how many cigarettes per day: 2 Home Medications - Allergies Allergies/Adverse Reactions: Allergies Allergy/AdvReac Type Severity Reaction Status Date / Time gabapentin [From Neurontin] Allergy Verified 10/16/16 10:41 - Home Medications Home Medications: Ambulatory Orders Amlodipine Besylate [Norvasc -] 10 mg PO DAILY 10/16/16 Dextroamphetamine/Amphetamine [Adderall 10 mg Tablet] 10 mg PO DAILY 10/16/16 Duloxetine HCl [Cymbalta -] 60 mg PO DAILY 10/16/16 Hydrocodone/Acetaminophen [Vicodin Hp 10-300 mg Tablet] 1 each PO Q4H PRN Metoprolol Tartrate [Lopressor] 100 mg PO DAILY 10/16/16 Mirtazapine [Remeron -] 0.25 tab PO HS 10/16/16 Omeprazole 20 mg PO DAILY 10/16/16 Potassium Chloride [K-Dur -] 10 meq PO DAILY 10/16/16 Pregabalin [Lyrica -] 100 mg PO DAILY 10/16/16 Tamsulosin HCl [Flomax] 0.4 mg PO DAILY 10/16/16 Physical Exam-GI Vital Signs: Vital Signs Temperature 98.5 F 10/17/16 18:00 Pulse Rate 77 10/17/16 18:00 Respiratory Rate 20 10/17/16 18:00 Blood Pressure 152/74 10/17/16 18:00 O2 Sat by Pulse Oximetry (%) 98 10/17/16 12:00 Constitutional: Yes: Well Nourished, No Distress, Calm Eyes: Yes: WNL HENT: Yes: Normocephalic Neck: Yes: Supple Cardiovascular: Yes: Regular Rate and Rhythm Respiratory: Yes: CTA Bilaterally Gastrointestinal Inspection: Yes: WNL ...Auscultate: Yes: Normoactive Bowel Sounds ...Palpate: Yes: Soft, Tenderness (LLQ with no rebound) ...Percussion: Yes: Dullness Labs: Hepatic Panel Total Bilirubin 0.6 mg/dL (0.2-1.0) 10/16/16 12:45 AST 17 U/L (15-37) 10/16/16 12:45 ALT 26 U/L (12-78) 10/16/16 12:45 Alkaline Phosphatase 72 U/L (45-117) 10/16/16 12:45 Albumin 3.6 g/dl (3.4-5.0) 10/16/16 12:45 CBC, BMP 10/17/16 08:00 10/17/16 18:15 Imaging - Results Cat Scan: Report Reviewed (normal) Assessment/Plan Patient with normal labs exc for modestly decreased K, now with diarrhea. Labs and CT don't seem congruous with 30 BM per day. Apparently improving now. Clinical picture not c/w C diff as no WBC and patient looks well. Rec: IVF Check HIV status Follow stools for C diff and other pathogens EGD and colon as outpatient to R/O tumor, colitis, malabsorption issue, infiltrative disorder ie: amyloid, sarcoid etc Nurse to document every stool to get a better idea of frequency. Immodium if necessary to control diarrhea should problem get worse
[2016-10-17] MEDS: POTASSIUM CHLORIDE TABS 20 MEQ TABLET.ER (FP) PO SCH (21:41)
[2016-10-17] MEDS: MIRTAZAPINE 15 MG TABLET (FP) PO SCH (21:42)
[2016-10-17] MEDS ORDERED: CHOLESTYRAMINE/SUCROSE 4 GM PACKET PO SCH (22:00)
[2016-10-18 02:42] LABS: HIV 1 & 2 AB NEGATIVE; HIV 1 AGp24 NEGATIVE
[2016-10-18] MEDS: D5-1/2NS+40 MEQ KCL - 1,000 ML IV SCH (03:06)
[2016-10-18] MEDS: POTASSIUM CHLORIDE TABS 20 MEQ TABLET.ER (FP) PO SCH ×2 (06:24→13:32)
[2016-10-18 07:32] LABS: MCH 28.7 pg (25.7-33.7); MCHC 33.6 g/dl (32.0-35.9); MEAN CELL VOLUME 85.3 fl (80-96); MEAN PLT VOLUME 7.5 fl (7.5-11.1); PLATELET COUNT 358 K/MM3 (134-434); RDW 14.8 % (11.9-15.9); WHITE BLOOD COUNT 5.3 K/mm3 (4.0-10.0)
[2016-10-18 08:05] LABS: ALBUMIN 3.1 g/dl (3.4-5.0); ANION GAP 9 (8-16); CALCIUM 8.5 mg/dL (8.5-10.1); CO2 28 mmol/L (21-32); COCKROFT - GAULT 119.06; CREATININE 0.8 mg/dL (0.7-1.3); GLUCOSE,RANDOM 100 mg/dL (74-106); MAGNESIUM 1.9 mg/dL (1.8-2.4); PHOSPHOROUS 2.2 mg/dL (2.5-4.9); SGOT/AST 13 U/L (15-37); SGPT/ALT 19 U/L (12-78)
[2016-10-18 08:07] LABS: ALK PHOS 64 U/L (45-117); TOT PROT 6.6 g/dl (6.4-8.2)
[2016-10-18] MEDS: METOPROLOL TARTRATE 50 MG TABLET (FP) PO SCH (09:07)
[2016-10-18] MEDS: LACTOBACILLUS ACIDOPHILUS 1 EACH TAB (FP) PO SCH (09:07)
[2016-10-18] MEDS: PREGABALIN 100 MG CAPSULE PO SCH (09:07)
[2016-10-18] MEDS: amLODIPine BESYLATE 10 MG TABLET (FP) PO SCH (09:07)
[2016-10-18] MEDS: PANTOPRAZOLE 20 MG TABLET (FP) PO SCH (09:07)
[2016-10-18] MEDS: TAMSULOSIN HCL 0.4 MG CAP.ER.24H (FP) PO SCH (09:07)
[2016-10-18] MEDS: DULoxetine HCL 30 MG CAPSULE.DR (FP) PO SCH (09:07)
[2016-10-18] MEDS: NAPH,MB-DB/K PH,MBDB POWDER PACKET PO SCH (09:08)
[2016-10-18] MEDS ORDERED: PT OWN MED DRAWER 7, Y5N ONE (09:48)
[2016-10-18] MEDS ORDERED: CHOLESTYRAMINE/ASPARTAME 4 GM PACKET PO SCH (10:00)
[2016-10-18] MEDS: SPIRONOLACTONE 25 MG TABLET (FP) PO SCH ×2 (10:25→10:29)
--- NOTE | 2016-10-18 10:38 | PN ---
Physical Exam: SUBJECTIVE: Patient seen and examined at bed side. No complaints. OBJECTIVE: Vital Signs Period Temp Pulse Resp BP Sys/Ayala Pulse Ox Last 24 Hr 98.0 F-98.5 F 69-77 18-20 125-152/70-85 95-98 GENERAL: The patient is awake, alert, and fully oriented, in no acute distress. HEAD: Normal with no signs of trauma. EYES: PERRL, extraocular movements intact, sclera anicteric, conjunctiva clear. No ptosis. ENT: Ears normal, nares patent, oropharynx clear without exudates, moist mucous membranes. NECK: Trachea midline, full range of motion, supple. LUNGS: Breath sounds equal, clear to auscultation bilaterally, no wheezes, no crackles, no accessory muscle use. HEART: Regular rate and rhythm, S1, S2 without murmur, rub or gallop. ABDOMEN: Soft, nontender, nondistended, normoactive bowel sounds, no guarding, no rebound, no hepatosplenomegaly, no masses. EXTREMITIES: 2+ pulses, warm, well-perfused, no edema. NEUROLOGICAL: Cranial nerves II through XII grossly intact. Normal speech, gait not observed. PSYCH: Normal mood, normal affect. SKIN: Warm, dry, normal turgor, no rashes or lesions noted Laboratory Results - last 24 hr 10/17/16 10/17/16 10/17/16 18:15 18:15 21:30 WBC RBC Hgb Hct MCV MCHC RDW Plt Count MPV Sodium 143 Potassium 3.3 L D Chloride 106 Carbon Dioxide 28 Anion Gap 9 BUN 8 D Creatinine 0.8 Creat Clearance w eGFR Random Glucose 93 Calcium 8.9 Phosphorus Magnesium 1.8 Total Bilirubin AST ALT Alkaline Phosphatase Total Protein Albumin HIV 1&2 Antibody Screen Negative HIV P24 Antigen Negative 10/18/16 10/18/16 06:40 06:40 WBC 5.3 RBC 4.29 Hgb 12.3 Hct 36.6 MCV 85.3 MCHC 33.6 RDW 14.8 Plt Count 358 MPV 7.5 Sodium 144 Potassium 3.4 L Chloride 107 Carbon Dioxide 28 Anion Gap 9 BUN 6 L D Creatinine 0.8 Creat Clearance w eGFR > 60 Random Glucose 100 Calcium 8.5 Phosphorus 2.2 L Magnesium 1.9 Total Bilirubin 1.0 D AST 13 L D ALT 19 D Alkaline Phosphatase 64 Total Protein 6.6 Albumin 3.1 L HIV 1&2 Antibody Screen HIV P24 Antigen Active Medications Generic Name Dose Route Start Last Admin Trade Name Freq PRN Reason Stop Dose Admin Amlodipine Besylate 10 mg 10/16/16 21:30 10/18/16 09:07 Norvasc - PO 10 mg DAILY RON Administration Cholestyramine Resin 4 gm 10/18/16 10:00 10/18/16 10:25 Questran Light Packet - PO 4 gm BID RON Administration Duloxetine HCl 60 mg 10/17/16 10:00 10/18/16 09:07 Cymbalta - PO 60 mg DAILY RON Administration Dextrose/Sodium Chloride 1,000 mls @ 125 mls/hr 10/17/16 18:15 10/18/16 03:06 D5-1/2ns+40 Meq Kcl - IV 125 mls/hr ASDIR RON Administration Lactobacillus Acidophilus 1 tab 10/17/16 14:00 10/18/16 09:07 Bacid - PO 1 tab DAILY RON Administration Metoprolol Tartrate 100 mg 10/17/16 10:00 10/18/16 09:07 Lopressor - PO 100 mg DAILY RON Administration Mirtazapine 7.5 mg 10/16/16 22:00 10/17/16 21:42 Remeron - PO 7.5 mg HS RON Administration Ondansetron HCl 4 mg 10/16/16 20:31 10/16/16 20:57 Zofran Injection IVPUSH 4 mg Q6H PRN Administration NAUSEA AND/OR VOMITING Oxycodone HCl 10 mg 10/16/16 21:26 Roxicodone - PO Q6H PRN PAIN Pantoprazole Sodium 20 mg 10/17/16 10:00 10/18/16 09:07 Protonix - PO 20 mg DAILY RON Administration Potassium Chloride 40 meq 10/17/16 22:00 10/18/16 06:24 K-Dur - PO 40 meq TID RON Administration Potassium Phos/Sodium Phos 1 packet 10/17/16 20:30 10/18/16 09:08 Phos-Nak Packet - PO 1 packet BID RON Administration Pregabalin 100 mg 10/17/16 10:00 10/18/16 09:07 Lyrica - PO 100 mg DAILY RON Administration Spironolactone 25 mg 10/18/16 10:00 10/18/16 10:29 Aldactone - PO Not Given DAILY [facility] Tamsulosin HCl 0.4 mg 10/17/16 10:00 10/18/16 09:07 Flomax - PO 0.4 mg DAILY [facility] Administration ASSESSMENT/PLAN: Patient is a 56 year old Male with 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 # Nausea, vomiting, diarrhoea Differential diagnosis: Irritable bowel syndrome, less likely c-diff because there is no white count; ulcerative colitis, crohns disease, chronic pancreatitis; infiltrative disease-amyloid, sarcoid. Admitted in Med-Surg CT abdomen/Pelvis no acute pathology He had a colonoscopy 10 years ago and it was normal as per the patient, would consider colonoscopy as outpatient to r/o Ulcerative colitis or crohns disease. Since patient has a h/o nausea/vomiting/diarrhoea for almost 20 years, has h/ o depression and is on medication, most likely it is Irritable bowel syndrome. IVF NS @ 125 mls + 40 mEq/L IV Zofran PRN GI consult requested Stool sent for C-diff; stool culture, ova and parasite. Bacid 1 tab PO daily # Hypokalemia in setting of Gitelmans syndrome (diagnosed in 2006) K 3.1---> 2.5; Ordered IV KCL x 3 bags, after receiving the first bag for 5 minutes patient started screaming of pain, couldn't tolerate it. Hence discontinued it and added Kcl 40 mEq/L in IV NS @ 100mls/hr Magnesium 1.8 Patient received PO K-dur 40 this am and stat at 4pm, repeat K and Mg at 7pm and if Potassium is still low, give another K-Dur 40meq PO. Renal consult requested # Hypertension: stable. Continue metoprolol 100mg PO daily and amlodipine 20mg PO daily # BPH Doesn't have urinary symptoms at this time As per CT scan report, Prostate gland is enlarged measuring 6.3 x 5.6 x 5.4 cm. Continue Flomax 0.4 mg PO Daily. # Degenerative disc disease Oxycodone 10mg PO Q6H PRN and Pregabalin 100mg PO Daily. # Depression Continue Mirtazapine 7.5 mg PO HS, Duloxetine 6o mg PO Daily. Patient is on home medication Dextroamphetamine/Amphetamine (don't have in our pharmacy) # FEN IV NS with 40 mEq/L @ 100 mls/hr Electrolytes to be repeated in am Full liquid diet Na restricted # Prophylaxis For DVT: On SCD's For GI: On pantoprazole 20mg PO Daily # Dispo: Admitted in Med-Surg. Duration of stay unknown. Patient has a trip tomorrow and wanted to go home today. Patient explained the risks of leaving with critically low potassium value. Patient agreed to stay. Illness, Investigation and Plan of care explained to the patient. He verbalized understanding. Case seen and discussed with Dr. Stone. Visit type - Emergency Visit Emergency Visit: Yes ED Registration Date: 10/17/16 Care time: The patient presented to the Emergency Department on the above date and was hospitalized for further evaluation of their emergent condition. - New Patient This patient is new to me today: No - Critical Care Critical Care patient: No - Discharge Referral Referred to [facility] Med P.C.: No
--- NOTE | 2016-10-18 12:51 | PN ---
Progress Note, Physician History of Present Illness: Pt seen and examined at bedside. He is awake and alert. He feels that the diarrhea is improved. - Current Medication List Current Medications: Active Medications Amlodipine Besylate (Norvasc -) 10 mg PO DAILY [facility] Last Admin: 10/18/16 09:07 Dose: 10 mg Cholestyramine Resin (Questran Light Packet -) 4 gm PO BID [facility] Last Admin: 10/18/16 10:25 Dose: 4 gm Duloxetine HCl (Cymbalta -) 60 mg PO DAILY [facility] Last Admin: 10/18/16 09:07 Dose: 60 mg Dextrose/Sodium Chloride (D5-1/2ns+40 Meq Kcl -) 1,000 mls @ 125 mls/hr IV ASDIR [facility] Last Admin: 10/18/16 03:06 Dose: 125 mls/hr Lactobacillus Acidophilus (Bacid -) 1 tab PO DAILY [facility] Last Admin: 10/18/16 09:07 Dose: 1 tab Metoprolol Tartrate (Lopressor -) 100 mg PO DAILY [facility] Last Admin: 10/18/16 09:07 Dose: 100 mg Mirtazapine (Remeron -) 7.5 mg PO HS [facility] Last Admin: 10/17/16 21:42 Dose: 7.5 mg Ondansetron HCl (Zofran Injection) 4 mg IVPUSH Q6H PRN PRN Reason: NAUSEA AND/OR VOMITING Last Admin: 10/16/16 20:57 Dose: 4 mg Oxycodone HCl (Roxicodone -) 10 mg PO Q6H PRN PRN Reason: PAIN Pantoprazole Sodium (Protonix -) 20 mg PO DAILY [facility] Last Admin: 10/18/16 09:07 Dose: 20 mg Potassium Chloride (K-Dur -) 40 meq PO TID [facility] Last Admin: 10/18/16 06:24 Dose: 40 meq Potassium Phos/Sodium Phos (Phos-Nak Packet -) 1 packet PO BID [facility] Last Admin: 10/18/16 09:08 Dose: 1 packet Pregabalin (Lyrica -) 100 mg PO DAILY [facility] Last Admin: 10/18/16 09:07 Dose: 100 mg Spironolactone (Aldactone -) 25 mg PO DAILY [facility] Last Admin: 10/18/16 10:29 Dose: Not Given Tamsulosin HCl (Flomax -) 0.4 mg PO DAILY RON Last Admin: 10/18/16 09:07 Dose: 0.4 mg - Objective Vital Signs: Vital Signs Temperature 98.2 F 10/18/16 10:00 Pulse Rate 80 10/18/16 10:00 Respiratory Rate 20 10/18/16 10:00 Blood Pressure 140/90 10/18/16 10:00 O2 Sat by Pulse Oximetry (%) 95 10/18/16 09:00 Constitutional: Yes: Calm Eyes: Yes: Conjunctiva Clear HENT: Yes: Atraumatic Neck: Yes: Supple Cardiovascular: Yes: S1, S2 Respiratory: Yes: CTA Bilaterally Gastrointestinal: Yes: Soft Genitourinary: Yes: WNL Musculoskeletal: Yes: WNL Edema: No Neurological: Yes: Oriented Psychiatric: Yes: Oriented Labs: CBC, BMP 10/18/16 06:40 10/18/16 06:40 Problem List - Problems (1) Diarrhea Code(s): R19.7 - DIARRHEA, UNSPECIFIED (2) Gastroenteritis Code(s): K52.9 - NONINFECTIVE GASTROENTERITIS AND COLITIS, UNSPECIFIED (3) Gitelman syndrome Code(s): E83.42 - HYPOMAGNESEMIA E87.6 - HYPOKALEMIA (4) HTN (hypertension) Code(s): I10 - ESSENTIAL (PRIMARY) HYPERTENSION (5) Hypokalemia Code(s): E87.6 - HYPOKALEMIA Assessment/Plan Current Medications Generic Name Dose Route Start Last Admin Trade Name Freq PRN Reason Stop Dose Admin Amlodipine Besylate 10 mg 10/16/16 21:30 10/18/16 09:07 Norvasc - PO 10 mg DAILY RON Administration Cholestyramine Resin 4 gm 10/18/16 10:00 10/18/16 10:25 Questran Light Packet - PO 4 gm BID RON Administration Duloxetine HCl 60 mg 10/17/16 10:00 10/18/16 09:07 Cymbalta - PO 60 mg DAILY RON Administration Dextrose/Sodium Chloride 1,000 mls @ 125 mls/hr 10/17/16 18:15 10/18/16 03:06 D5-1/2ns+40 Meq Kcl - IV 125 mls/hr ASDIR RON Administration Lactobacillus Acidophilus 1 tab 10/17/16 14:00 10/18/16 09:07 Bacid - PO 1 tab DAILY RON Administration Metoprolol Tartrate 100 mg 10/17/16 10:00 10/18/16 09:07 Lopressor - PO 100 mg DAILY RON Administration Mirtazapine 7.5 mg 10/16/16 22:00 10/17/16 21:42 Remeron - PO 7.5 mg HS RON Administration Ondansetron HCl 4 mg 10/16/16 20:31 10/16/16 20:57 Zofran Injection IVPUSH 4 mg Q6H PRN Administration NAUSEA AND/OR VOMITING Oxycodone HCl 10 mg 10/16/16 21:26 Roxicodone - PO Q6H PRN PAIN Pantoprazole Sodium 20 mg 10/17/16 10:00 10/18/16 09:07 Protonix - PO 20 mg DAILY RON Administration Potassium Chloride 40 meq 10/17/16 22:00 10/18/16 06:24 K-Dur - PO 40 meq TID RON Administration Potassium Phos/Sodium Phos 1 packet 10/17/16 20:30 10/18/16 09:08 Phos-Nak Packet - PO 1 packet BID RON Administration Pregabalin 100 mg 10/17/16 10:00 10/18/16 09:07 Lyrica - PO 100 mg DAILY RON Administration Spironolactone 25 mg 10/18/16 10:00 10/18/16 10:29 Aldactone - PO Not Given DAILY RON Tamsulosin HCl 0.4 mg 10/17/16 10:00 10/18/16 09:07 Flomax - PO 0.4 mg DAILY RON Administration Impression 1. Gitelman Syndrome 2. hypokalemia 3. HTN 4. diarrhea/gastroenteritis 5. GERD Plan - cont with PO potassium - repeat potassium level - will need outpt follow up - will need workup with GI for chronic diarrhea - follow up repeat labs - monitor potassium closely - will follow Dr Navarro
[2016-10-18 14:12] VITALS: BP 130/73; PULSE 79; TEMP 98
--- NOTE | 2016-10-18 14:57 | PN ---
Progress Note (short form) - Note Progress Note: Doing well Diarrhea resolved No abdominal pain Tolerating po Last Vital Signs Temp Pulse Resp BP Pulse Ox 98 F 79 17 130/73 95 10/18/16 14:11 10/18/16 14:11 10/18/16 14:11 10/18/16 14:11 10/18/16 09:00 EXAM: WNWDM Lungs clear Cor Reg Abd soft, NT CBC, BMP 10/18/16 06:40 Hepatic Panel Total Bilirubin 1.0 mg/dL (0.2-1.0) D 10/18/16 06:40 AST 13 U/L (15-37) L D 10/18/16 06:40 ALT 19 U/L (12-78) D 10/18/16 06:40 Alkaline Phosphatase 64 U/L (45-117) 10/18/16 06:40 Albumin 3.1 g/dl (3.4-5.0) L 10/18/16 06:40 A/P Can d/c with opt colon/EGD to be done Patient will come for procedures Information furnished.
[2016-10-18 15:17] LABS: MAGNESIUM 1.7 mg/dL (1.8-2.4)
--- NOTE | 2016-10-18 16:27 | DS ---
Physical Exam: SUBJECTIVE: Patient seen and examined at bed side this morning. Patient mentioned he didn't have a single episode of diarrhoea today. Abdominal pain has resolved. He feels good. No complaints. Denies chest pain, sob, cough, palpitation, abdominal pain, nausea or vomiting. OBJECTIVE: Vital Signs Period Temp Pulse Resp BP Sys/Ayala Pulse Ox Last 24 Hr 98 F-98.5 F 69-80 17-20 125-152/70-90 95-95 PHYSICAL EXAM GENERAL: The patient is awake, alert, and fully oriented, in no acute distress. HEAD: Normal with no signs of trauma. EYES: EOM intact, no pallor or icterus. ENT: Ears normal, moist mucous membranes. NECK: Supple. LUNGS: Breath sounds equal, clear to auscultation bilaterally, no wheezes, no crackles, no accessory muscle use. HEART: Regular rate and rhythm, S1, S2 without murmur, rub or gallop. ABDOMEN: Soft, non tender, nondistended, normoactive bowel sounds, no guarding, no rebound, no hepatosplenomegaly, no masses. EXTREMITIES: 2+ pulses, warm, well-perfused, no edema. NEUROLOGICAL: Cranial nerves II through XII grossly intact. Normal speech, gait not observed. PSYCH: Normal mood, normal affect. SKIN: Warm, dry, normal turgor, no rashes or lesions noted LABS Laboratory Results - last 24 hr 10/17/16 10/17/16 10/17/16 18:15 18:15 21:30 WBC RBC Hgb Hct MCV MCHC RDW Plt Count MPV Sodium 143 Potassium 3.3 L D Chloride 106 Carbon Dioxide 28 Anion Gap 9 BUN 8 D Creatinine 0.8 Creat Clearance w eGFR Random Glucose 93 Calcium 8.9 Phosphorus Magnesium 1.8 Total Bilirubin AST ALT Alkaline Phosphatase Total Protein Albumin HIV 1&2 Antibody Screen Negative HIV P24 Antigen Negative 10/18/16 10/18/16 10/18/16 06:40 06:40 14:30 WBC 5.3 RBC 4.29 Hgb 12.3 Hct 36.6 MCV 85.3 MCHC 33.6 RDW 14.8 Plt Count 358 MPV 7.5 Sodium 144 Potassium 3.4 L 3.7 Chloride 107 Carbon Dioxide 28 Anion Gap 9 BUN 6 L D Creatinine 0.8 Creat Clearance w eGFR > 60 Random Glucose 100 Calcium 8.5 Phosphorus 2.2 L Magnesium 1.9 1.7 L Total Bilirubin 1.0 D AST 13 L D ALT 19 D Alkaline Phosphatase 64 Total Protein 6.6 Albumin 3.1 L HIV 1&2 Antibody Screen Negative HIV P24 Ant[address] abdomen/Pelvis 10/16/2016: The lung bases are clear. The liver is normal in size and texture. There is an enhancing mass within the posterior right lobe consistent with a hemangioma. There is also a tiny cyst within the left lobe. The spleen, pancreas, adrenal glands and kidneys demonstrate no significant abnormalities. Bilateral renal cysts are present. The gallbladder is clear. There is no evidence of intra- abdominal or retroperitoneal lymphadenopathy or fluid collections. There is no evidence of pneumoperitoneum, bowel obstruction or intra-abdominal abscess. There is no CT evidence of acute appendicitis or diverticulitis. Examination of the pelvis demonstrates no evidence of pelvic masses, fluid collections or lymphadenopathy. The prostate gland is enlarged measuring 6.3 x 5.6 x 5.4 cm. There is thickening of the jones of the urinary bladder with a right posterior diverticulum present. There is no evidence of acute bony abnormalities. The patient is S/P laminectomy and posterior fusion at L3-L5. IMPRESSION: 1. Prostatic enlargement with thickened urinary bladder containing a right posterior diverticulum. 2. No acute pathology within the abdomen or pelvis. 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 Patient was admitted for evaluation of diarrhoea and hypokalemia. He said he has a h/o chronic diarrhoea since 20 years. During hospitalization, he had several episodes of diarrhoea but it resolved completely today. No abdominal pain, nausea or vomiting noted. He was admitted in Med-Surg. CT abdomen/Pelvis didn't show any acute pathology. He had a colonoscopy 10 years ago and it was normal as per the patient. GI was consulted and as per recommendations needs outpatient GI follow up with colonoscopy. Hypokalemia in the setting of Gitelmans syndrome (diagnosed in 2006). Patient was treated with IV KCl mixed with IV NS since patient couldn't tolerate IV KCL. He responded well and todays K was 3.7. Patient was suggested to take Spironolactone 25mg Daily as it would help in Gitelmans syndrome, however, patient refused to take it since he had side effects (gynecomastia) in the past. Discharging patient on K-dur 40 mEq/L TID and to follow up with Dr. Navarro (Renal) at this clinic in a week. Hypomagesemia now resolved after it was repleted Hypertension: stable. Continue metoprolol 100mg PO daily and amlodipine 20mg PO daily BPH didn't have urinary symptoms at this time. As per CT scan report, Prostate gland is enlarged measuring 6.3 x 5.6 x 5.4 cm. Continue Flomax 0.4 mg PO Daily. Degenerative disc disease Pregabalin 100mg PO Daily. Depression. Continue Mirtazapine 7.5 mg PO HS, Duloxetine 6o mg PO Daily. Patient is on home medication Dextroamphetamine/Amphetamine Plan of care explained to the patient. He verbalized understanding. Case seen and discussed with Dr. Stone. Minutes to complete discharge: 45 Discharge Summary Reason For Visit: GASTROENTERITIS; HYPOKALEMIA Current Active Problems Diarrhea (Acute) Gastroenteritis (Acute) Gitelman syndrome (Acute) HTN (hypertension) (Acute) Hypokalemia (Acute) Condition: Stable - Instructions Diet, Activity, Other Instructions: You were admitted for the evaluation of diarrhoea and hypokalemia. Diarrhoea has improved and Hypokalemia has resolved. Please take K-Dur 40 mEq three times a day. Please make sure to visit Dr. Navarro (Renal doctor) in a week. You also need to do a routine colonoscopy and it would also help to find out the cause of diarrhoea. F/up with GI (Dr. Art) in two weeks. Close follow up with nephrology and primary care doctor for potassium checks. If your symptoms get worse or if you have any other symptoms, please visit the Emergency Department immediately. Referrals: Richard Art MD [Staff Physician] - 2 Weeks (for further work up EGD/ colonoscopy ) Pauline Navarro MD [Staff Physician] - 1 Week (for potassium check and further follow up) Disposition: HOME - Home Medications Comprehensive Discharge Medication List: Ambulatory Orders Amlodipine Besylate [Norvasc -] 10 mg PO DAILY 10/16/16 Dextroamphetamine/Amphetamine [Adderall 10 mg Tablet] 10 mg PO DAILY 10/16/16 Duloxetine HCl [Cymbalta -] 60 mg PO DAILY 10/16/16 Hydrocodone/Acetaminophen [Vicodin Hp 10-300 mg Tablet] 1 each PO Q4H PRN Metoprolol Tartrate [Lopressor] 100 mg PO DAILY 10/16/16 Mirtazapine [Remeron -] 0.25 tab PO HS 10/16/16 Omeprazole 20 mg PO DAILY 10/16/16 Pregabalin [Lyrica -] 100 mg PO DAILY 10/16/16 Tamsulosin HCl [Flomax -] 0.4 mg PO DAILY 10/16/16 Potassium Chloride [K-Dur -] 40 meq PO TID #30 tablet.er 10/18/16 This patient is new to me today: No Emergency Visit: Yes ED Registration Date: 10/17/16 Care time: The patient presented to the Emergency Department on the above date and was hospitalized for further evaluation of their emergent condition. Critical Care patient: No - Discharge Referral Referred to [facility] Med P.C.: No
[2016-10-18 17:17] LABS: CALCIUM 8.9 mg/dL (8.5-10.1); COCKROFT - GAULT 105.83; CREATININE 0.9 mg/dL (0.7-1.3)
== END 2016-10-18 17:41 | disposition home or self-care (01) | DRG 424 ==
LOC: JER 10:25 → EDBD 10:25 → JERBED 19:20 → J5S 21:28 → OBSVTOIN 10-17 11:00
PROVIDERS: ADMIT Internal Medicine; ATTEND Internal Medicine
DX: E26.81 Bartter's syndrome (principal); K52.9 Noninfective gastroenteritis and colitis, unspecified; E87.6 Hypokalemia; I10 Essential (primary) hypertension; E83.42 Hypomagnesemia; N40.0 Benign prostatic hyperplasia without lower urinary tract symptoms; F32.9 Major depressive disorder, single episode, unspecified; K21.9 Gastro-esophageal reflux disease without esophagitis; Z72.0 Tobacco use; R35.8 Other polyuria; K58.9 Irritable bowel syndrome, unspecified
CPT/HCPCS: 36415; 74177-TC; 80048; 80053; 81003; 82550; 82553; 83605; 83690; 83735; 84100; 84132; 84484; 85025; 85027; 87045; 87046; 87177; 87209; 87324; 87328; 87329; 87389; 87449; 93005; 93010; 99283-25; G0378; Q9967

== ENCOUNTER 2022-07-30 00:25 | Emergency (ER) | payer OTHER ==
[2022-07-30] MEDS ORDERED: EPINEPHrine 1:10,000 (P-F SYR) 1 MG/10 ML DISP.SYRIN ONE (00:32)
[2022-07-30] MEDS ORDERED: SODIUM BICARBONATE 8.4% 50 MEQ/50 ML DISP.SYRIN ONE ×2 (00:32)
[2022-07-30 00:41] VITALS: BP 127/84; PULSE 102; RESP 43; BMI 24.4
== END 2022-07-30 03:26 | disposition expired ==
LOC: JER 00:25
DX: I46.9 Cardiac arrest, cause unspecified (principal)
CPT/HCPCS: 99283-25